=== PATIENT | male | born 1955 | race African-American/Black ===

== ENCOUNTER 2024-05-11 11:19 | Day surgery (SDC) | payer MEDICARE, SELFPAY ==
[2024-05-11] VITALS (10 sets, daily range): BP systolic 118–151; BP diastolic 74–90; PULSE 69–89; RESP 16–18; TEMP 36.8–37.1; O2SAT 95–100; BMI 24.7
--- NOTE | 2024-05-11 12:59 | P.PNAN_ITS ---
Anes - Eval Pre Procedure Procedure: Operation Date: 05/11/24 13:45 Proposed Procedures p Incision and Drainage Olya-Rectal Abscess - Sreedhar Donaldson DO Date/Time: 05/11/24 12:59 Pre Op Diagnosis: olya-rectal abscess Patient Data Age: 68 Gender: M Height: Weight: Allergies Allergy/AdvReac Type Severity Reaction Status Date / Time levofloxacin [From Levaquin] Allergy Unknown Unknown Verified 05/11/24 10:15 Home Medications Medication Instructions Recorded Confirmed Type amoxicillin 875 mg tablet 875 mg PO Q12H 05/11/24 05/11/24 History atorvastatin 20 mg tablet 20 mg PO QHS 05/11/24 05/11/24 History hydroxyzine pamoate 25 mg capsule 25 mg PO Q6H PRN 05/11/24 05/11/24 History (Vistaril) lisinopril 5 mg tablet 5 mg PO DAILY 05/11/24 05/11/24 History metformin 500 mg tablet,extended 500 mg PO DAILY 05/11/24 05/11/24 History release 24 hr Patient hx anesthesia problems: none Family hx anesthesia problems: none Results Review: All pre-operative results and documents have been reviewed as part of the pre- operative evaluation. [facility], [facility] Past Medical History Medical History (Updated 05/11/24 @ 12:59 by Mainor Patterson Jr., CRNA) Diabetes mellitus Hyperlipemia Hypertension Perirectal abscess Surgical History Surgical History S/P pneumonectomy right upper lobectomy 01/2020 Family History Family History Father Malignant neoplasm of prostate Carcinoma of colon Social History Social History Smoking status: Former smoker Do You Feel Safe in your Home?: Yes Lack of Transportation: No Lack of Food: Never True Current Housing: I Have Housing Concerned About Future Housing: No Difficulty Paying Gas/Electric Bills: No Difficulty Paying for Meds: YES Currently Unemployed: No Education: Master's Degree or Higher Difficulty w/ Childcare or Family Care: No Exam Day of Procedure 05/11/24 12:59
--- NOTE | 2024-05-11 13:30 | WPDANESEPPF ---
Anes - Initial Pre Proc Eval Procedure: Operation Date: 05/11/24 13:45 Proposed Procedures p Incision and Drainage Olya-Rectal Abscess - Sreedhar Donaldson DO Date/Time: 05/11/24 13:30 Surgeon: Sreedhar Donaldson DO Pre Op Diagnosis: olya-rectal abscess Patient Data Age: 68 Gender: M Height: Weight: Allergies Allergy/AdvReac Type Severity Reaction Status Date / Time levofloxacin [From Levaquin] Allergy Unknown Unknown Verified 05/11/24 13:58 Home Medications Medication Instructions Recorded Confirmed Type amoxicillin 875 mg tablet 875 mg PO Q12H 05/11/24 05/11/24 History atorvastatin 20 mg tablet 20 mg PO QHS 05/11/24 05/11/24 History hydroxyzine pamoate 25 mg capsule 25 mg PO Q6H PRN Anxiety 05/11/24 05/11/24 History (Vistaril) lisinopril 5 mg tablet 5 mg PO DAILY 05/11/24 05/11/24 History metformin 500 mg tablet,extended 500 mg PO DAILY 05/11/24 05/11/24 History release 24 hr Patient hx anesthesia problems: none Family hx anesthesia problems: none Results Review: All pre-operative results and documents have been reviewed as part of the pre-operative evaluation. [facility] Past Medical History Medical History Diabetes mellitus Hyperlipemia Hypertension Perirectal abscess Surgical History Surgical History S/P pneumonectomy right upper lobectomy 01/2020 Family History Family History Father Malignant neoplasm of prostate Carcinoma of colon Social History Social History Smoking status: Former smoker Do You Feel Safe in your Home?: Yes Lack of Transportation: No Lack of Food: Never True Current Housing: I Have Housing Concerned About Future Housing: No Difficulty Paying Gas/Electric Bills: No Difficulty Paying for Meds: YES Currently Unemployed: No Education: Master's Degree or Higher Difficulty w/ Childcare or Family Care: No Anes - Eval Final PreProcedure Day of Procedure 05/11/24 13:30 Patient weight: normal Heart: regular rate and rhythm Lungs: clear to auscultation Airway: Mallampati scale (Missing tooth R post aspect. ) class II Neurological: alert and oriented Last oral intake: 6 hours ASA classification: II Emergent: yes Anesthetic plan: delay Anesthesia type and monitoring: general ETT and standard monitoring Results Review: All pre-operative results and documents have been reviewed as part of the pre-operative evaluation. HTN by hx. Pt does push ups/sit ups every am, helps mow lawns, no cp or sob. Now for emergent I and D. Pt had banana at 7 am. Informed Consent: The patient's anesthetic plan and its attendant risks and benefits were discussed with the patient/family/POA. Questions were solicited and answers provided to the satisfaction of the patient/family/POA.
[2024-05-11] MEDS: LACTATED RINGERS 1,000 ML 30 ML IV CONT (13:45)
--- NOTE | 2024-05-11 14:03 | WPDHPUPDATE1 ---
History and Physical Update Update Date/Time: 05/11/24 14:03 History and Physical has been reviewed, including an updated exam of the patient. There are NO changes in the patient's condition. Risks, benefits, and alternatives have been discussed and questions answered. Patient agrees to proceed with procedure.
[2024-05-11 14:08] LABS: Anion Gap 8 mmol/L (4-12); Blood Urea Nitrogen 13 mg/dL (9-20); Calcium 9.3 mg/dL (8.4-10.2); Carbon Dioxide 25 mmol/L (22-30); Chloride 109 mmol/L (98-107); Estimated CRCL calculation 87 ml/min; Estimated Glomerular Filt Rate > 60; Glucose 126 mg/dL (65-110); Potassium 3.5 mmol/L (3.4-5.0); Sodium 142 mmol/L (137-145)
[2024-05-11] MEDS: ceFAZolin 2 GM/D5W 50 ML 2 GM/50 ML BAG IVPB (14:09)
[2024-05-11] MEDS: BUPIVACAINE/EPINEPHRINE 0.5% 10 ML VIAL 30 ML INFILTRATE (14:21)
--- NOTE | 2024-05-11 14:40 | W.PM.PROC2 ---
Procedure Note - Detailed Date of Procedure 05/11/24 Pre-op Diagnosis olya-rectal abscess Post-op Diagnosis Same (Posterior midline perirectal abscess) Procedure Performed Incision and drainage of complicated perirectal abscess Surgeon Sreedhar Donaldson, DO Anesthesia General (LMA) and Local (0.5% bupivacaine with epinephrine) Indications This is a 68-year-old man who presented to the office with complaints of perirectal swelling and pain for the past 5 days. He was started on antibiotics through his PCP 5 days ago and 2 days ago was seen in the PCPs office and was not showing any significant improvement. A CT was obtained which showed evidence a perirectal abscess. He was very tender on exam in the office today and could not tolerate an office procedure under local anesthetic. I discussed treatment options with the patient and decision was made to proceed with incision and drainage of perirectal abscess in the operating under anesthesia. Findings Incision and drainage of perirectal abscess was performed. The patient was found to have a complicated perirectal abscess in the posterior midline. There were multiple loculations within a 3 cm perirectal abscess and the abscess did appear to be communicating into the anal canal possibly representing a future fistula formation. A 2 cm cruciate incision was made over the area of fluctuance in the posterior midline and about 10-20 mL of purulence drainage was evacuated. The wound was then packed with half-inch iodoform gauze. No specimens were obtained for pathology. Description of Procedure Procedure as well as risks, benefits, and alternatives were discussed with the patient. Written consent was obtained and placed in chart prior to procedure. Patient was brought back to surgical suite. He was placed supine on operating table. Time-out was done to confirm patient and procedure. He was intubated by the anesthesia department. He was then repositioned in the dorsal lithotomy position. His perirectal was prepped and draped in sterile fashion using Betadine prep. Digital rectal exam was initially performed and the perianal skin was carefully palpated. 0.5% bupivacaine with epinephrine was then infiltrated locally over the area of fluctuance in the posterior midline. I did notice some her drainage of purulence fluid and local anesthetic from within the anal canal as was infiltrated. A 2 cm cruciate incision was then made using a 15 blade scalpel. Once entering into the abscess cavity, purulence drainage was noted. A curved hemostat was then inserted into the abscess cavity and loculations were broken up. No further purulence was noted. The area was then irrigated with sterile saline. Hemostasis appeared adequate no other abnormalities were noted. The wound was then packed with half-inch iodoform gauze. Fluff gauze, ABD pad, and mesh underwear were then applied. The patient was then awakened from anesthesia, extubated, and transferred to recovery. Estimated Blood Loss 5 Packing Yes (1/2 inch iodoform gauze) Complications No immediate complications Condition Stable Disposition Same day [facility] Billing Surgery - Charge Forward: Surgery Billing
[2024-05-11 14:58] LABS: Glucose Point of Care 101 mg/dl (65-105)
[2024-05-11] MEDS: fentaNYL CITRATE INJ (*CRX) 100 MCG/2 ML VIAL 25 MCG IV PUSH ×2 (15:35→15:41)
[2024-05-11] MEDS: oxyCODONE HCL (*CRX) 5 MG TAB IR PO (16:23)
== END 2024-05-11 16:55 | disposition home or self-care (01) ==
PROVIDERS: Anesthesiology; PCP Pediatrics; Visit Provider Surgery
PROC: (CPT 46040; principal; 2024-05-11 13:45)
DX: K61.1 Rectal abscess (principal); E11.9 Type 2 diabetes mellitus without complications; I10 Essential (primary) hypertension; E78.5 Hyperlipidemia, unspecified; Z90.2 Acquired absence of lung [part of]; Z87.891 Personal history of nicotine dependence
CPT/HCPCS: 46040; 36415; 80048; 82948; A9270; J0690; J3010; J7120